=== PATIENT | female | born 1975 | race Two or more races ===

== ENCOUNTER 2021-04-11 23:16 | Emergency (ER) | payer OTHER ==
[~2021-04-11] VITALS: Ht 154.9 cm; Wt 55.0 kg
[2021-04-12] MEDS ORDERED: KETOROLAC TROMETHAMINE 30 MG/ML VIAL IM ONE
[2021-04-12] MEDS ORDERED: OxyCODONE HCL/ACETAMINOPHEN 5-325 MG TABLET PO ONE
[2021-04-12 02:46] VITALS: BP 119/69
== END 2021-04-12 02:54 | disposition home or self-care (01) ==
LOC: EMS 23:19
DX: S82.391A Other fracture of lower end of right tibia, initial encounter for closed fracture (principal); W19.XXXA Unspecified fall, initial encounter; Y93.89 Activity, other specified; Y92.89 Other specified places as the place of occurrence of the external cause; Y99.8 Other external cause status
CPT/HCPCS: 29515; 72070; 72110; 73610; 73630; 96372; 99284; J1885